=== PATIENT | female | born 1950 | race Caucasian/White ===

== ENCOUNTER 2018-12-04 11:56 | Emergency (ER) | payer OTHER, BC ==
[2018-12-04 12:08] VITALS: BP 123/63; PULSE 66; TEMP 98.1; BMI 30.1
--- NOTE | 2018-12-04 12:59 | PDOC ---
History of Present Illness - General Chief Complaint: Injury Stated Complaint: LF FOOT INJURY Time Seen by Provider: 12/04/18 12:21 History Source: Patient - History of Present Illness Occurred: reports: other Lower Extremity Pain Location: left: 4th toe, 5th toe Method of Injury: Yes: direct blow Past History - Past Medical History Allergies/Adverse Reactions: Allergies Allergy/AdvReac Type Severity Reaction Status Date / Time No Known Allergies Allergy Verified 12/04/18 12:04 Home Medications: Ambulatory Orders Amlodipine Besylate [Norvasc -] 5 mg PO DAILY 12/04/18 Carvedilol 6.25 mg PO BID 12/04/18 Hydralazine HCl 10 mg PO ASDIR 12/04/18 Isosorbide Dinitrate [Isordil] 20 mg PO DAILY 12/04/18 Olmesartan Medoxomil [Benicar (Nf)] 20 mg PO DAILY 12/04/18 Simvastatin 20 mg PO HS 12/04/18 Cardiac Disorders: Yes CVA: Yes (2000) COPD: Yes HTN: Yes Hypercholesterolemia: Yes - Surgical History Cardiac Surgery: Yes (PACEMAKER, DEFIB) - Psycho Social/Smoking Cessation Hx Smoking Status: Yes Smoking History: Unknown if ever smoked Number of Cigarettes Smoked Daily: 10 If you are a former smoker, when did you quit?: 03/15/2013 Hx Alcohol Use: No Drug/Substance Use Hx: No Substance Use Type: None Review of Systems - Review of Systems Musculoskeletal: Yes: Joint Pain, Joint Swelling *Physical Exam - Vital Signs Last Vital Signs Temp Pulse Resp BP Pulse Ox 98.1 F 66 16 123/63 12/04/18 12:06 12/04/18 12:06 12/04/18 12:06 12/04/18 12:06 - Physical Exam General Appearance: Yes: Appropriately Dressed. No: Apparent Distress HEENT: positive: Normal Voice Neck: positive: Supple Respiratory/Chest: negative: Respiratory Distress Extremity: positive: Other (contusion to dorsum of L 4th/5th toes, no sig swelling) Integumentary: positive: Dry, Warm Neurologic: positive: Fully Oriented, Alert, Normal Mood/Affect ED Treatment Course - RADIOLOGY Radiology Studies Ordered: Category Date Time Status FOOT-LEFT [RAD] Stat Radiology 12/04/18 12:34 Completed Medical Decision Making - Medical Decision Making 10/04/19 13:00 68-year-old female with multiple comorbidities here with persistent pain to L 4th/5th toes after bumping L foot into shopping cart 4 days ago. see exam Toe contusion XR neg for fx -Gen tape placed, to take tylenol prn -To f/u with PMD Discharge - Discharge Information Problems reviewed: Yes Clinical Impression/Diagnosis: Contusion Qualifiers: Encounter type: initial encounter Contusion area: toe Toe: lesser toe Damage to nail status: without damage Laterality: left Qualified Code(s): S90.122A - Contusion of left lesser toe(s) without damage to nail, initial encounter Condition: Good Disposition: HOME - Follow up/Referral Referrals: Francisco Carbajal MD [Primary Care Provider] - - Patient Discharge Instructions Patient Printed Discharge Instructions: Contusion Additional Instructions: You sustained a toe contusion. X-ray showed no fracture. Take extra strength Tylenol and keep gen tape in place for comfort Please follow-up with your doctor as needed - Post Discharge Activity
== END 2018-12-04 12:59 | disposition home or self-care (01) ==
LOC: JERFT 11:56
PROC: 2W3VXYZ Immobilization of Left Toe using Other Device (ICD-10-PCS; principal; 2018-12-04)
DX: S90.122A Contusion of left lesser toe(s) without damage to nail, initial encounter (principal); W22.8XXA Striking against or struck by other objects, initial encounter; Y93.89 Activity, other specified; Y92.512 Supermarket, store or market as the place of occurrence of the external cause; E78.00 Pure hypercholesterolemia, unspecified; I10 Essential (primary) hypertension; Z86.73 Personal history of transient ischemic attack (TIA), and cerebral infarction without residual deficits; Z87.891 Personal history of nicotine dependence; Z95.0 Presence of cardiac pacemaker
CPT/HCPCS: 29550; 73630-TC-LT; 99281-25

== ENCOUNTER 2019-01-06 09:56 | Emergency (ER) | payer OTHER, BC ==
[2019-01-06] MEDS ORDERED: ACETAMINOPHEN 325 MG TABLET (FP) PO ONE (10:43)
[2019-01-06] MEDS ORDERED: ACETAMINOPHEN 325 MG TABLET (FP) ONE (10:44)
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
[2019-01-06 11:24] VITALS: BP 143/79; PULSE 62; TEMP 97.2; BMI 39.6
== END 2019-01-06 10:49 | disposition home or self-care (01) ==
LOC: JERFT 09:56
DX: M54.6 Pain in thoracic spine (principal); M25.562 Pain in left knee; V43.52XA Car driver injured in collision with other type car in traffic accident, initial encounter; Y92.414 Local residential or business street as the place of occurrence of the external cause; Y93.89 Activity, other specified; Y99.8 Other external cause status; I25.10 Atherosclerotic heart disease of native coronary artery without angina pectoris; I10 Essential (primary) hypertension; Z95.810 Presence of automatic (implantable) cardiac defibrillator; J44.9 Chronic obstructive pulmonary disease, unspecified; E78.00 Pure hypercholesterolemia, unspecified; Z86.73 Personal history of transient ischemic attack (TIA), and cerebral infarction without residual deficits
CPT/HCPCS: 99281-25

== ENCOUNTER 2020-12-02 10:18 | Emergency (ER) | payer OTHER, BC ==
[2020-12-02 10:31] VITALS: PULSE 88; TEMP 97.9; BMI 45.7
[2020-12-02 13:58] VITALS: BP 120/78
== END 2020-12-02 13:59 | disposition home or self-care (01) ==
LOC: JER 10:18
DX: T82.118A Breakdown (mechanical) of other cardiac electronic device, initial encounter (principal)
CPT/HCPCS: 71045-TC-FY; 93005; 93010; 99284-25

== ENCOUNTER 2021-09-26 16:50 | Emergency (ER) | payer OTHER, BC ==
[2021-09-26 17:11] VITALS: BP 131/86; PULSE 71; RESP 18; TEMP 98.1; BMI 42.0
== END 2021-09-26 18:01 | disposition home or self-care (01) ==
LOC: JERFT 16:50
DX: R21 Rash and other nonspecific skin eruption (principal)
CPT/HCPCS: 99283-25

== ENCOUNTER 2023-02-20 09:19 | Inpatient (IN) | payer OTHER, BC ==
[2023-02-20] MEDS ORDERED: ALBUTEROL SO4 2.5/IPRATROPIUM 0.5 INH SOL 3 ML VIAL.NEB. NEB ONE ×5 (10:32→19:37)
[2023-02-20 11:25] LABS: INR 1.7 (0.83-1.09); PROTHROMBIN TIME (PATIENT) 19.6 SEC (9.7-13.0)
[2023-02-20 11:27] LABS: BASO % 0.4 % (0-2.0); EOS % 0.1 % (0-4.5); HEMATOCRIT 38.8 % (32.4-45.2); HEMOGLOBIN 12.2 GM/dL (10.7-15.3); LYMPH % 4.6 % (8-40); MCH 24.6 pg (25.7-33.7); MCHC 31.5 g/dl (32.0-36.0); MEAN PLT VOLUME 7.3 fl (7.5-11.1); MONO % 12.6 % (3.8-10.2); NEUT % 82.3 % (42.8-82.8); PLATELET COUNT 237 10^3/uL (134-434); RBC 4.98 M/mm3 (3.60-5.2); RDW 16.6 % (11.6-15.6); WHITE BLOOD COUNT 6.6 K/mm3 (4.0-10.0)
[2023-02-20 11:28] LABS: ACTIVATED PTT 33.3 SECONDS (25.2-36.5)
[2023-02-20 11:45] LABS: POTASSIUM 4.7 mmol/L (3.5-5.1)
[2023-02-20 11:47] LABS: ALBUMIN 3.4 g/dl (3.4-5.0); BLOOD UREA NITROGEN 30.6 mg/dL (7-18); MAGNESIUM 2.1 mg/dL (1.8-2.4)
[2023-02-20 11:50] LABS: CREATININE 1.1 mg/dL (0.55-1.3)
[2023-02-20 11:52] LABS: BILIRUBIN,TOTAL 0.3 mg/dL (0.2-1)
[2023-02-20 11:55] LABS: N-TERMINAL BNP 1108.6 pg/ml (5-125); TOT PROT 6.5 g/dl (6.4-8.2)
[2023-02-20] MEDS ORDERED: methylPREDNISolone NA SUCC 125 MG/2 ML VIAL IVPUSH ONE (13:24)
[2023-02-20] MEDS ORDERED: ALBUTEROL SO4 0.083% IH SOL 2.5 MG/3 ML VIAL.NEB. NEB ONE ×2 (13:25→14:13)
[2023-02-20] MEDS ORDERED: methylPREDNISolone NA SUCC 125 MG/2 ML VIAL ONE (14:13)
[2023-02-20] MEDS ORDERED: methylPREDNISolone NA SUCC 40 MG/1 ML VIAL ONE (17:25)
[2023-02-20] MEDS: methylPREDNISolone NA SUCC 40 MG/1 ML VIAL IVPUSH SCH (18:34)
[2023-02-20 18:46] LABS: EPI CELLS 17 /uL (0-25.1); HYALINE CASTS 1 /uL (0-3.1); PH,URINE 5.5 (5.0-8.0); URINE APPEARANCE CLEAR; URINE BACTERIA 62 /uL (0-1359); URINE BILIRUBIN NEGATIVE (NEGATIVE); URINE COLOR YELLOW; URINE GLUCOSE (UA) 3+ (NEGATIVE); URINE KETONE NEGATIVE (NEGATIVE); URINE LEUK ESTERASE NEGATIVE (NEGATIVE); URINE NITRITE NEGATIVE (NEGATIVE); URINE PROTEIN 2+ (NEGATIVE); URINE UROBILINOGEN 0.2 mg/dL (0.2-1.0); URINE WBC 23 /uL (0-25.8)
[2023-02-20] MEDS: ALBUTEROL SO4 2.5/IPRATROPIUM 0.5 INH SOL 3 ML VIAL.NEB. NEB SCH (19:43)
[2023-02-20] MEDS: RIVAROXABAN 20 MG TABLET PO SCH (19:43)
[2023-02-20] MEDS: ISOSORBIDE DINITRATE 20 MG TABLET PO SCH (19:49)
[2023-02-20 20:48] LABS: URINE RBC 23.3 /uL (0-23.9)
[2023-02-20] MEDS ORDERED: CARVEDILOL 6.25 MG TABLET (FP) ONE (21:01)
[2023-02-20] MEDS ORDERED: hydrALAZINE HCL 10 MG TABLET ONE (21:01)
[2023-02-20] MEDS: CARVEDILOL 6.25 MG TABLET (FP) PO SCH (21:08)
[2023-02-20] MEDS: hydrALAZINE HCL 10 MG TABLET PO SCH (21:08)
[2023-02-20] MEDS: ROSUVASTATIN CA 10 MG TABLET PO SCH (21:08)
[2023-02-20] MEDS: PRAMIPEXOLE DIHYDROCHLORIDE 0.5 MG TABLET PO SCH (21:09)
[2023-02-20] MEDS: INSULIN SLIDING SCALE (NOVOLOG) 1 VIAL SQ SCH (21:13)
[2023-02-20] MEDS ORDERED: INSULIN (NOVOLOG) ASPART 100 UNITS/ML 10ML VIAL SQ ONE (22:32)
[2023-02-21] MEDS ORDERED: SODIUM CHLORIDE 250 ML IV STA (00:32)
[2023-02-21] MEDS ORDERED: methylPREDNISolone NA SUCC 40 MG/1 ML VIAL ONE (00:48)
[2023-02-21] MEDS: methylPREDNISolone NA SUCC 40 MG/1 ML VIAL IVPUSH SCH ×3 (01:00→17:39)
[2023-02-21 02:03] LABS: BILIRUBIN,TOTAL 0.2 mg/dL (0.2-1); BLOOD UREA NITROGEN 35.2 mg/dL (7-18); CALCIUM 8.5 mg/dL (8.5-10.1); CREATININE 1.4 mg/dL (0.55-1.3); MAGNESIUM 2.3 mg/dL (1.8-2.4); PHOSPHOROUS 4.1 mg/dL (2.5-4.9); POTASSIUM 4.8 mmol/L (3.5-5.1)
[2023-02-21] MEDS ORDERED: INSULIN (NOVOLOG) ASPART 100 UNITS/ML 10ML VIAL ONE ×4 (07:40→21:22)
[2023-02-21] MEDS: INSULIN SLIDING SCALE (NOVOLOG) 1 VIAL SQ SCH ×5 (07:41→22:01)
[2023-02-21 08:15] LABS: BASO % 0.1 % (0-2.0); HEMOGLOBIN 11.2 GM/dL (10.7-15.3); LYMPH % 4.7 % (8-40); MCH 24.8 pg (25.7-33.7); MCHC 31.9 g/dl (32.0-36.0); MEAN CELL VOLUME 77.8 fl (80-96); MEAN PLT VOLUME 7.5 fl (7.5-11.1); MONO % 4.7 % (3.8-10.2); NEUT % 90.5 % (42.8-82.8); PLATELET COUNT 218 10^3/uL (134-434); RDW 16.9 % (11.6-15.6); WHITE BLOOD COUNT 4.3 K/mm3 (4.0-10.0)
[2023-02-21] MEDS: ALBUTEROL SO4 2.5/IPRATROPIUM 0.5 INH SOL 3 ML VIAL.NEB. NEB SCH ×4 (08:28→20:18)
[2023-02-21] MEDS ORDERED: ISOSORBIDE DINITRATE 20 MG TABLET PO SCH (10:00)
[2023-02-21] MEDS ORDERED: CEFTRIAXONE 1,000 MG in DEXTROSE 5%-WATER - 50 ML IVPB SCH (10:00)
[2023-02-21] MEDS: LOSARTAN POTASSIUM 50 MG TABLET PO SCH (10:36)
[2023-02-21] MEDS: hydrALAZINE HCL 10 MG TABLET PO SCH ×2 (10:36→22:02)
[2023-02-21] MEDS: CARVEDILOL 6.25 MG TABLET (FP) PO SCH ×2 (10:36→22:02)
[2023-02-21] MEDS: PRAMIPEXOLE DIHYDROCHLORIDE 0.5 MG TABLET PO SCH ×2 (10:36→22:02)
[2023-02-21] MEDS: NYSTATIN POWDER 100,000 UNITS/GM - 15 GM TOPICAL POWDER TP SCH ×2 (10:37→22:03)
[2023-02-21] MEDS: ISOSORBIDE DINITRATE 20 MG TABLET PO SCH ×2 (11:33→18:24)
[2023-02-21] MEDS: OSELTAMIVIR PHOSPHATE 75 MG CAPSULE PO SCH (13:13)
[2023-02-21] MEDS: RIVAROXABAN 20 MG TABLET PO SCH (18:24)
[2023-02-21] MEDS ORDERED: INSULIN (LEVEMIR) 100 UNITS/ML UNITS SQ SCH (22:00)
[2023-02-21] MEDS: guaiFENesin 600 MG TABLET.ER (FP) PO SCH (22:02)
[2023-02-21] MEDS: INSULIN (LEVEMIR) 100 UNITS/ML UNITS SQ SCH (22:02)
[2023-02-21] MEDS: ROSUVASTATIN CA 10 MG TABLET PO SCH (22:02)
[2023-02-22] MEDS: methylPREDNISolone NA SUCC 40 MG/1 ML VIAL IVPUSH SCH ×3 (02:03→17:58)
[2023-02-22] MEDS ORDERED: INSULIN (NOVOLOG) ASPART 100 UNITS/ML 10ML VIAL ONE ×2 (06:07→21:09)
[2023-02-22] MEDS: INSULIN SLIDING SCALE (NOVOLOG) 1 VIAL SQ SCH ×4 (06:42→21:39)
[2023-02-22] MEDS: INSULIN (LEVEMIR) 100 UNITS/ML UNITS SQ SCH ×2 (06:45→21:38)
[2023-02-22] MEDS: ALBUTEROL SO4 2.5/IPRATROPIUM 0.5 INH SOL 3 ML VIAL.NEB. NEB SCH ×4 (07:30→20:19)
[2023-02-22 08:34] LABS: HEMATOCRIT 36.2 % (32.4-45.2); HEMOGLOBIN 11.4 GM/dL (10.7-15.3); MCH 24.6 pg (25.7-33.7); MCHC 31.6 g/dl (32.0-36.0); MEAN CELL VOLUME 78.1 fl (80-96); MEAN PLT VOLUME 7.6 fl (7.5-11.1); PLATELET COUNT 254 10^3/uL (134-434); RBC 4.63 M/mm3 (3.60-5.2); RDW 16.3 % (11.6-15.6); WHITE BLOOD COUNT 9.2 K/mm3 (4.0-10.0)
[2023-02-22 09:05] LABS: POTASSIUM 5.2 mmol/L (3.5-5.1)
[2023-02-22 09:27] LABS: BLOOD UREA NITROGEN 47.5 mg/dL (7-18); MAGNESIUM 2.6 mg/dL (1.8-2.4)
[2023-02-22 09:30] LABS: BILIRUBIN,TOTAL 0.2 mg/dL (0.2-1); TOT PROT 5.9 g/dl (6.4-8.2)
[2023-02-22 10:21] LABS: ANISOCYTOSIS 3+; MACROCYTOSIS 0
[2023-02-22] MEDS: hydrALAZINE HCL 10 MG TABLET PO SCH ×2 (10:48→21:41)
[2023-02-22] MEDS: guaiFENesin 600 MG TABLET.ER (FP) PO SCH ×2 (10:48→21:40)
[2023-02-22] MEDS: CARVEDILOL 6.25 MG TABLET (FP) PO SCH ×2 (10:48→21:41)
[2023-02-22] MEDS: OSELTAMIVIR PHOSPHATE 75 MG CAPSULE PO SCH (10:48)
[2023-02-22] MEDS: ISOSORBIDE DINITRATE 20 MG TABLET PO SCH ×2 (10:48→17:58)
[2023-02-22] MEDS: PRAMIPEXOLE DIHYDROCHLORIDE 0.5 MG TABLET PO SCH ×2 (10:48→21:40)
[2023-02-22] MEDS: LOSARTAN POTASSIUM 50 MG TABLET PO SCH (10:48)
[2023-02-22] MEDS: NYSTATIN POWDER 100,000 UNITS/GM - 15 GM TOPICAL POWDER TP SCH ×2 (10:50→21:42)
[2023-02-22] MEDS ORDERED: SODIUM ZIRCONIUM CYCLOSILICATE (LOKELMA) 5 GM PACKET PO ONE (12:00)
[2023-02-22 13:29] LABS: GLUCOSE,RANDOM 454 mg/dL (74-106)
[2023-02-22 14:13] VITALS: BMI 41.8
[2023-02-22] MEDS: RIVAROXABAN 20 MG TABLET PO SCH (17:59)
[2023-02-22] MEDS: ROSUVASTATIN CA 10 MG TABLET PO SCH (21:41)
[2023-02-22] MEDS ORDERED: metFORMIN HCL 500 MG TABLET (FP) PO SCH (22:00)
[2023-02-22] MEDS ORDERED: METFORMIN HCL 500 MG PO SCH (22:00)
[2023-02-23] MEDS: methylPREDNISolone NA SUCC 40 MG/1 ML VIAL IVPUSH SCH ×3 (01:11→17:35)
[2023-02-23] MEDS: INSULIN (LEVEMIR) 100 UNITS/ML UNITS SQ SCH ×2 (07:01→22:55)
[2023-02-23] MEDS: INSULIN SLIDING SCALE (NOVOLOG) 1 VIAL SQ SCH ×4 (07:02→22:59)
[2023-02-23 09:01] LABS: HEMATOCRIT 37.8 % (32.4-45.2); HEMOGLOBIN 11.7 GM/dL (10.7-15.3); MCH 24.3 pg (25.7-33.7); MEAN CELL VOLUME 78.3 fl (80-96); MEAN PLT VOLUME 7.8 fl (7.5-11.1); PLATELET COUNT 303 10^3/uL (134-434); RBC 4.82 M/mm3 (3.60-5.2); RDW 16.9 % (11.6-15.6)
[2023-02-23 09:27] LABS: POTASSIUM 5.3 mmol/L (3.5-5.1)
[2023-02-23 09:38] LABS: BLOOD UREA NITROGEN 43.2 mg/dL (7-18)
[2023-02-23 09:40] LABS: ALBUMIN 2.9 g/dl (3.4-5.0); BILIRUBIN,TOTAL 0.3 mg/dL (0.2-1); CREATININE 0.9 mg/dL (0.55-1.3); MAGNESIUM 2.5 mg/dL (1.8-2.4); TOT PROT 5.8 g/dl (6.4-8.2)
[2023-02-23] MEDS: ALBUTEROL SO4 2.5/IPRATROPIUM 0.5 INH SOL 3 ML VIAL.NEB. NEB SCH ×4 (09:40→20:05)
[2023-02-23 09:52] LABS: ANISOCYTOSIS 0; HELMET CELLS 0; HOWELL-JOLLY BODIES 0; MACROCYTOSIS 0; OVALOCYTE 0; ROULEAU 0; SICKELED CELLS 0; TARGET CELLS 0; TEAR DROP CELLS 0; TOXIC GRANULATION 0
[2023-02-23] MEDS: LOSARTAN POTASSIUM 50 MG TABLET PO SCH (10:20)
[2023-02-23] MEDS: ISOSORBIDE DINITRATE 20 MG TABLET PO SCH ×2 (10:20→17:36)
[2023-02-23] MEDS: PRAMIPEXOLE DIHYDROCHLORIDE 0.5 MG TABLET PO SCH ×2 (10:20→22:54)
[2023-02-23] MEDS: CARVEDILOL 6.25 MG TABLET (FP) PO SCH ×2 (10:20→22:54)
[2023-02-23] MEDS: hydrALAZINE HCL 10 MG TABLET PO SCH ×2 (10:20→22:53)
[2023-02-23] MEDS: guaiFENesin 600 MG TABLET.ER (FP) PO SCH ×2 (10:20→22:54)
[2023-02-23] MEDS: OSELTAMIVIR PHOSPHATE 75 MG CAPSULE PO SCH (10:20)
[2023-02-23] MEDS: NYSTATIN POWDER 100,000 UNITS/GM - 15 GM TOPICAL POWDER TP SCH ×2 (10:22→23:01)
[2023-02-23] MEDS ORDERED: INSULIN (NOVOLOG) ASPART 100 UNITS/ML 10ML VIAL ONE (12:09)
[2023-02-23] MEDS: SODIUM ZIRCONIUM CYCLOSILICATE (LOKELMA) 10 GM PACKET PO SCH (12:22)
[2023-02-23 13:07] LABS: GLUCOSE,RANDOM 492 mg/dL (74-106)
[2023-02-23] MEDS ORDERED: metFORMIN HCL 500 MG TABLET (FP) PO ONE (13:45)
[2023-02-23] MEDS: metFORMIN HCL 500 MG TABLET (FP) PO SCH (17:34)
[2023-02-23] MEDS: RIVAROXABAN 20 MG TABLET PO SCH (17:34)
[2023-02-23] MEDS: ROSUVASTATIN CA 10 MG TABLET PO SCH (22:54)
[2023-02-24] MEDS: methylPREDNISolone NA SUCC 40 MG/1 ML VIAL IVPUSH SCH ×3 (03:05→17:18)
[2023-02-24] MEDS ORDERED: amLODIPine BESYLATE 10 MG TABLET (FP) PO ONE (05:54)
[2023-02-24] MEDS ORDERED: amLODIPine BESYLATE 5 MG TABLET (FP) PO ONE (05:55)
[2023-02-24] MEDS: metFORMIN HCL 500 MG TABLET (FP) PO SCH ×2 (06:41→17:17)
[2023-02-24] MEDS: INSULIN SLIDING SCALE (NOVOLOG) 1 VIAL SQ SCH ×4 (06:42→22:34)
[2023-02-24] MEDS: INSULIN (LEVEMIR) 100 UNITS/ML UNITS SQ SCH ×2 (06:43→22:31)
[2023-02-24] MEDS ORDERED: INSULIN (NOVOLOG) ASPART 100 UNITS/ML 10ML VIAL ONE ×4 (07:15→22:33)
[2023-02-24] MEDS: ALBUTEROL SO4 2.5/IPRATROPIUM 0.5 INH SOL 3 ML VIAL.NEB. NEB SCH ×4 (07:40→20:35)
[2023-02-24 09:14] LABS: HEMATOCRIT 37.2 % (32.4-45.2); HEMOGLOBIN 11.6 GM/dL (10.7-15.3); MCH 24.1 pg (25.7-33.7); MCHC 31.2 g/dl (32.0-36.0); MEAN CELL VOLUME 77.2 fl (80-96); MEAN PLT VOLUME 7.5 fl (7.5-11.1); PLATELET COUNT 278 10^3/uL (134-434); RBC 4.82 M/mm3 (3.60-5.2); RDW 16.6 % (11.6-15.6); WHITE BLOOD COUNT 11.8 K/mm3 (4.0-10.0)
[2023-02-24 09:38] LABS: ANISOCYTOSIS 0; MACROCYTOSIS 0
[2023-02-24] MEDS: LOSARTAN POTASSIUM 50 MG TABLET PO SCH (09:38)
[2023-02-24] MEDS: OSELTAMIVIR PHOSPHATE 75 MG CAPSULE PO SCH (09:38)
[2023-02-24] MEDS: CARVEDILOL 6.25 MG TABLET (FP) PO SCH ×2 (09:38→22:30)
[2023-02-24] MEDS: PRAMIPEXOLE DIHYDROCHLORIDE 0.5 MG TABLET PO SCH ×2 (09:38→22:29)
[2023-02-24] MEDS: hydrALAZINE HCL 10 MG TABLET PO SCH ×2 (09:38→22:28)
[2023-02-24] MEDS: guaiFENesin 600 MG TABLET.ER (FP) PO SCH ×2 (09:38→22:29)
[2023-02-24] MEDS: NYSTATIN POWDER 100,000 UNITS/GM - 15 GM TOPICAL POWDER TP SCH ×2 (09:45→22:35)
[2023-02-24] MEDS: ISOSORBIDE DINITRATE 20 MG TABLET PO SCH ×2 (09:45→17:21)
[2023-02-24 09:48] LABS: CALCIUM 8.8 mg/dL (8.5-10.1)
[2023-02-24 09:49] LABS: ALBUMIN 2.8 g/dl (3.4-5.0); BLOOD UREA NITROGEN 37.6 mg/dL (7-18); MAGNESIUM 2.2 mg/dL (1.8-2.4)
[2023-02-24 09:52] LABS: CREATININE 0.8 mg/dL (0.55-1.3)
[2023-02-24 09:53] LABS: TOT PROT 5.7 g/dl (6.4-8.2)
[2023-02-24 09:54] LABS: BILIRUBIN,TOTAL 0.3 mg/dL (0.2-1)
[2023-02-24] MEDS: SODIUM ZIRCONIUM CYCLOSILICATE (LOKELMA) 10 GM PACKET PO SCH (12:56)
[2023-02-24] MEDS: RIVAROXABAN 20 MG TABLET PO SCH (17:17)
[2023-02-24] MEDS: ROSUVASTATIN CA 10 MG TABLET PO SCH (22:29)
[2023-02-25] MEDS: methylPREDNISolone NA SUCC 40 MG/1 ML VIAL IVPUSH SCH ×3 (02:25→17:42)
[2023-02-25] MEDS ORDERED: amLODIPine BESYLATE 2.5 MG TABLET (FP) PO ONE (03:15)
[2023-02-25] MEDS ORDERED: INSULIN (NOVOLOG) ASPART 100 UNITS/ML 10ML VIAL ONE (06:44)
[2023-02-25] MEDS: metFORMIN HCL 500 MG TABLET (FP) PO SCH ×2 (07:15→17:42)
[2023-02-25] MEDS: INSULIN (LEVEMIR) 100 UNITS/ML UNITS SQ SCH ×2 (07:16→22:18)
[2023-02-25] MEDS: INSULIN SLIDING SCALE (NOVOLOG) 1 VIAL SQ SCH ×4 (07:20→22:19)
[2023-02-25] MEDS: ALBUTEROL SO4 2.5/IPRATROPIUM 0.5 INH SOL 3 ML VIAL.NEB. NEB SCH ×4 (08:19→20:21)
[2023-02-25 08:58] LABS: HEMATOCRIT 35.2 % (32.4-45.2); HEMOGLOBIN 11.2 GM/dL (10.7-15.3); MCH 24.8 pg (25.7-33.7); MCHC 31.7 g/dl (32.0-36.0); MEAN CELL VOLUME 78.3 fl (80-96); MEAN PLT VOLUME 7.7 fl (7.5-11.1); PLATELET COUNT 259 10^3/uL (134-434); RDW 16.2 % (11.6-15.6); WHITE BLOOD COUNT 9.8 K/mm3 (4.0-10.0)
[2023-02-25 09:02] LABS: POTASSIUM 4.7 mmol/L (3.5-5.1)
[2023-02-25 09:05] LABS: ALBUMIN 2.7 g/dl (3.4-5.0); BLOOD UREA NITROGEN 36.8 mg/dL (7-18); CALCIUM 8.7 mg/dL (8.5-10.1); MAGNESIUM 2.1 mg/dL (1.8-2.4)
[2023-02-25 09:08] LABS: CREATININE 0.8 mg/dL (0.55-1.3)
[2023-02-25 09:10] LABS: BILIRUBIN,TOTAL 0.3 mg/dL (0.2-1); TOT PROT 5.5 g/dl (6.4-8.2)
[2023-02-25] MEDS: hydrALAZINE HCL 10 MG TABLET PO SCH ×2 (09:14→22:21)
[2023-02-25] MEDS: LOSARTAN POTASSIUM 50 MG TABLET PO SCH (09:15)
[2023-02-25] MEDS: PRAMIPEXOLE DIHYDROCHLORIDE 0.5 MG TABLET PO SCH ×2 (09:15→22:21)
[2023-02-25] MEDS: CARVEDILOL 6.25 MG TABLET (FP) PO SCH ×2 (09:15→22:21)
[2023-02-25] MEDS: guaiFENesin 600 MG TABLET.ER (FP) PO SCH ×2 (09:15→22:20)
[2023-02-25] MEDS: ISOSORBIDE DINITRATE 20 MG TABLET PO SCH ×2 (09:43→17:45)
[2023-02-25] MEDS: NYSTATIN POWDER 100,000 UNITS/GM - 15 GM TOPICAL POWDER TP SCH ×2 (09:43→22:26)
[2023-02-25] MEDS: OSELTAMIVIR PHOSPHATE 75 MG CAPSULE PO SCH ×2 (09:54→22:21)
[2023-02-25 10:16] LABS: ANISOCYTOSIS 0; HELMET CELLS 0; HOWELL-JOLLY BODIES 0; MACROCYTOSIS 0; OVALOCYTE 0; ROULEAU 0; SICKELED CELLS 0; TARGET CELLS 0; TEAR DROP CELLS 0; TOXIC GRANULATION 0
[2023-02-25] MEDS: SODIUM ZIRCONIUM CYCLOSILICATE (LOKELMA) 10 GM PACKET PO SCH (12:05)
[2023-02-25] MEDS: RIVAROXABAN 20 MG TABLET PO SCH (17:41)
[2023-02-25] MEDS: ROSUVASTATIN CA 10 MG TABLET PO SCH (22:21)
[2023-02-26] MEDS: methylPREDNISolone NA SUCC 40 MG/1 ML VIAL IVPUSH SCH ×3 (02:35→17:39)
[2023-02-26] MEDS ORDERED: INSULIN (NOVOLOG) ASPART 100 UNITS/ML 10ML VIAL ONE (06:40)
[2023-02-26] MEDS: INSULIN SLIDING SCALE (NOVOLOG) 1 VIAL SQ SCH ×4 (06:47→22:12)
[2023-02-26] MEDS: INSULIN (LEVEMIR) 100 UNITS/ML UNITS SQ SCH ×2 (06:47→22:12)
[2023-02-26] MEDS: metFORMIN HCL 500 MG TABLET (FP) PO SCH ×2 (06:47→17:39)
[2023-02-26] MEDS: ALBUTEROL SO4 2.5/IPRATROPIUM 0.5 INH SOL 3 ML VIAL.NEB. NEB SCH ×4 (07:40→20:42)
[2023-02-26 09:47] LABS: HEMATOCRIT 35.1 % (32.4-45.2); HEMOGLOBIN 11.1 GM/dL (10.7-15.3); MCH 24.6 pg (25.7-33.7); MCHC 31.7 g/dl (32.0-36.0); MEAN CELL VOLUME 77.7 fl (80-96); MEAN PLT VOLUME 7.8 fl (7.5-11.1); PLATELET COUNT 253 10^3/uL (134-434); RBC 4.52 M/mm3 (3.60-5.2); RDW 16.2 % (11.6-15.6); WHITE BLOOD COUNT 8.5 K/mm3 (4.0-10.0)
[2023-02-26 10:36] LABS: POTASSIUM 4.6 mmol/L (3.5-5.1)
[2023-02-26 10:48] LABS: CREATININE 0.7 mg/dL (0.55-1.3)
[2023-02-26 10:49] LABS: BILIRUBIN,TOTAL 0.3 mg/dL (0.2-1); TOT PROT 5.4 g/dl (6.4-8.2)
[2023-02-26 10:51] LABS: ALBUMIN 2.6 g/dl (3.4-5.0); BLOOD UREA NITROGEN 34.7 mg/dL (7-18)
[2023-02-26 10:54] LABS: CALCIUM 8.4 mg/dL (8.5-10.1); MAGNESIUM 2.2 mg/dL (1.8-2.4)
[2023-02-26 11:09] LABS: ANISOCYTOSIS 3+; MACROCYTOSIS 0
[2023-02-26] MEDS: PRAMIPEXOLE DIHYDROCHLORIDE 0.5 MG TABLET PO SCH ×2 (11:09→22:14)
[2023-02-26] MEDS: CARVEDILOL 6.25 MG TABLET (FP) PO SCH ×2 (11:09→22:14)
[2023-02-26] MEDS: LOSARTAN POTASSIUM 50 MG TABLET PO SCH (11:09)
[2023-02-26] MEDS: OSELTAMIVIR PHOSPHATE 75 MG CAPSULE PO SCH ×2 (11:09→22:14)
[2023-02-26] MEDS: guaiFENesin 600 MG TABLET.ER (FP) PO SCH ×2 (11:09→22:14)
[2023-02-26] MEDS: hydrALAZINE HCL 10 MG TABLET PO SCH ×2 (11:09→22:14)
[2023-02-26] MEDS: ISOSORBIDE DINITRATE 20 MG TABLET PO SCH ×2 (11:09→18:01)
[2023-02-26] MEDS: NYSTATIN POWDER 100,000 UNITS/GM - 15 GM TOPICAL POWDER TP SCH ×2 (11:14→22:14)
[2023-02-26] MEDS: SODIUM ZIRCONIUM CYCLOSILICATE (LOKELMA) 10 GM PACKET PO SCH (12:25)
[2023-02-26] MEDS: RIVAROXABAN 20 MG TABLET PO SCH (17:38)
[2023-02-26] MEDS: ROSUVASTATIN CA 10 MG TABLET PO SCH (22:14)
[2023-02-27] MEDS: methylPREDNISolone NA SUCC 40 MG/1 ML VIAL IVPUSH SCH ×3 (03:01→17:41)
[2023-02-27] MEDS: INSULIN (LEVEMIR) 100 UNITS/ML UNITS SQ SCH ×2 (06:25→22:59)
[2023-02-27] MEDS: metFORMIN HCL 500 MG TABLET (FP) PO SCH ×2 (06:25→17:41)
[2023-02-27] MEDS: INSULIN SLIDING SCALE (NOVOLOG) 1 VIAL SQ SCH ×4 (06:26→23:05)
[2023-02-27] MEDS: ALBUTEROL SO4 2.5/IPRATROPIUM 0.5 INH SOL 3 ML VIAL.NEB. NEB SCH ×4 (07:46→20:25)
[2023-02-27 09:44] LABS: HEMOGLOBIN 11.4 GM/dL (10.7-15.3); MCH 24.6 pg (25.7-33.7); MCHC 31.7 g/dl (32.0-36.0); MEAN CELL VOLUME 77.8 fl (80-96); MEAN PLT VOLUME 7.8 fl (7.5-11.1); PLATELET COUNT 251 10^3/uL (134-434); RBC 4.62 M/mm3 (3.60-5.2); RDW 16.1 % (11.6-15.6); WHITE BLOOD COUNT 9.9 K/mm3 (4.0-10.0)
[2023-02-27 09:58] LABS: POTASSIUM 4.5 mmol/L (3.5-5.1)
[2023-02-27 10:00] LABS: CALCIUM 8.7 mg/dL (8.5-10.1)
[2023-02-27 10:02] LABS: ALBUMIN 2.5 g/dl (3.4-5.0); BLOOD UREA NITROGEN 30.8 mg/dL (7-18); MAGNESIUM 2.3 mg/dL (1.8-2.4)
[2023-02-27 10:04] LABS: CREATININE 0.7 mg/dL (0.55-1.3)
[2023-02-27 10:05] LABS: TOT PROT 5.1 g/dl (6.4-8.2)
[2023-02-27 10:07] LABS: BILIRUBIN,TOTAL 0.2 mg/dL (0.2-1)
[2023-02-27] MEDS: guaiFENesin 600 MG TABLET.ER (FP) PO SCH ×2 (10:07→22:59)
[2023-02-27] MEDS: LOSARTAN POTASSIUM 50 MG TABLET PO SCH (10:07)
[2023-02-27] MEDS: OSELTAMIVIR PHOSPHATE 75 MG CAPSULE PO SCH ×2 (10:07→22:59)
[2023-02-27] MEDS: hydrALAZINE HCL 10 MG TABLET PO SCH ×2 (10:07→22:59)
[2023-02-27] MEDS: CARVEDILOL 6.25 MG TABLET (FP) PO SCH ×2 (10:07→22:59)
[2023-02-27] MEDS: ISOSORBIDE DINITRATE 20 MG TABLET PO SCH ×2 (10:14→17:43)
[2023-02-27] MEDS: PRAMIPEXOLE DIHYDROCHLORIDE 0.5 MG TABLET PO SCH ×2 (10:15→22:59)
[2023-02-27] MEDS: NYSTATIN POWDER 100,000 UNITS/GM - 15 GM TOPICAL POWDER TP SCH ×2 (10:20→23:01)
[2023-02-27 10:49] LABS: ANISOCYTOSIS 0; MACROCYTOSIS 0
[2023-02-27] MEDS: SODIUM ZIRCONIUM CYCLOSILICATE (LOKELMA) 5 GM PACKET PO SCH (12:31)
[2023-02-27] MEDS: SODIUM ZIRCONIUM CYCLOSILICATE (LOKELMA) 10 GM PACKET PO SCH (12:43)
[2023-02-27] MEDS: RIVAROXABAN 20 MG TABLET PO SCH (17:41)
[2023-02-27] MEDS: ROSUVASTATIN CA 10 MG TABLET PO SCH (22:59)
[2023-02-27] MEDS: guaiFENesin/CODEINE 10 ML UNIT-DOSE CUPS PO SCH (23:01)
[2023-02-28] MEDS: methylPREDNISolone NA SUCC 40 MG/1 ML VIAL IVPUSH SCH ×3 (01:10→21:30)
[2023-02-28] MEDS: ALBUTEROL SO4 HFA INHALER IH PRN (05:00)
[2023-02-28] MEDS ORDERED: INSULIN (NOVOLOG) ASPART 100 UNITS/ML 10ML VIAL ONE ×2 (06:06→21:10)
[2023-02-28] MEDS: metFORMIN HCL 500 MG TABLET (FP) PO SCH ×2 (06:08→16:06)
[2023-02-28] MEDS: INSULIN (LEVEMIR) 100 UNITS/ML UNITS SQ SCH ×2 (06:09→21:32)
[2023-02-28] MEDS: INSULIN SLIDING SCALE (NOVOLOG) 1 VIAL SQ SCH ×4 (06:10→21:34)
[2023-02-28] MEDS: ALBUTEROL SO4 2.5/IPRATROPIUM 0.5 INH SOL 3 ML VIAL.NEB. NEB SCH ×4 (07:33→20:35)
[2023-02-28 09:45] LABS: HEMATOCRIT 36.2 % (32.4-45.2); HEMOGLOBIN 11.6 GM/dL (10.7-15.3); MCH 24.7 pg (25.7-33.7); MCHC 32.1 g/dl (32.0-36.0); MEAN CELL VOLUME 76.8 fl (80-96); MEAN PLT VOLUME 7.8 fl (7.5-11.1); PLATELET COUNT 267 10^3/uL (134-434); RBC 4.72 M/mm3 (3.60-5.2); RDW 16.5 % (11.6-15.6); WHITE BLOOD COUNT 10.3 K/mm3 (4.0-10.0)
[2023-02-28 09:55] LABS: POTASSIUM 4.4 mmol/L (3.5-5.1)
[2023-02-28 09:56] LABS: CALCIUM 8.7 mg/dL (8.5-10.1)
[2023-02-28 09:57] LABS: ALBUMIN 2.5 g/dl (3.4-5.0); BLOOD UREA NITROGEN 31.1 mg/dL (7-18); MAGNESIUM 2.2 mg/dL (1.8-2.4)
[2023-02-28 10:01] LABS: BILIRUBIN,TOTAL 0.3 mg/dL (0.2-1); CREATININE 0.7 mg/dL (0.55-1.3)
[2023-02-28 10:03] LABS: TOT PROT 5.4 g/dl (6.4-8.2)
[2023-02-28 10:19] LABS: ANISOCYTOSIS 0; MACROCYTOSIS 0
[2023-02-28] MEDS: CARVEDILOL 6.25 MG TABLET (FP) PO SCH ×2 (10:37→21:31)
[2023-02-28] MEDS: PRAMIPEXOLE DIHYDROCHLORIDE 0.5 MG TABLET PO SCH ×2 (10:37→21:31)
[2023-02-28] MEDS: hydrALAZINE HCL 10 MG TABLET PO SCH ×2 (10:37→21:31)
[2023-02-28] MEDS: ISOSORBIDE DINITRATE 20 MG TABLET PO SCH ×2 (10:38→21:31)
[2023-02-28] MEDS: LOSARTAN POTASSIUM 50 MG TABLET PO SCH (10:38)
[2023-02-28] MEDS: guaiFENesin 600 MG TABLET.ER (FP) PO SCH ×2 (10:38→21:31)
[2023-02-28] MEDS: NYSTATIN POWDER 100,000 UNITS/GM - 15 GM TOPICAL POWDER TP SCH ×2 (10:44→21:41)
[2023-02-28] MEDS: SODIUM ZIRCONIUM CYCLOSILICATE (LOKELMA) 5 GM PACKET PO SCH (12:22)
[2023-02-28] MEDS: RIVAROXABAN 20 MG TABLET PO SCH (18:08)
[2023-02-28] MEDS: guaiFENesin/CODEINE 10 ML UNIT-DOSE CUPS PO SCH (21:31)
[2023-02-28] MEDS: ROSUVASTATIN CA 10 MG TABLET PO SCH (21:31)
[2023-03-01] MEDS: metFORMIN HCL 500 MG TABLET (FP) PO SCH ×2 (06:20→17:25)
[2023-03-01] MEDS: hydrALAZINE HCL 10 MG TABLET PO SCH ×3 (06:21→21:50)
[2023-03-01] MEDS: INSULIN (LEVEMIR) 100 UNITS/ML UNITS SQ SCH ×2 (06:21→22:00)
[2023-03-01] MEDS: INSULIN SLIDING SCALE (NOVOLOG) 1 VIAL SQ SCH ×4 (06:23→22:02)
[2023-03-01] MEDS: ALBUTEROL SO4 HFA INHALER IH PRN (06:26)
[2023-03-01] MEDS ORDERED: INSULIN (NOVOLOG) ASPART 100 UNITS/ML 10ML VIAL ONE ×3 (06:49→19:00)
[2023-03-01] MEDS: ALBUTEROL SO4 2.5/IPRATROPIUM 0.5 INH SOL 3 ML VIAL.NEB. NEB SCH ×4 (07:15→20:33)
[2023-03-01 09:21] LABS: HEMATOCRIT 37.1 % (32.4-45.2); HEMOGLOBIN 11.5 GM/dL (10.7-15.3); MCH 24.4 pg (25.7-33.7); MCHC 31.1 g/dl (32.0-36.0); MEAN CELL VOLUME 78.4 fl (80-96); MEAN PLT VOLUME 7.7 fl (7.5-11.1); PLATELET COUNT 262 10^3/uL (134-434); RBC 4.73 M/mm3 (3.60-5.2); RDW 16.2 % (11.6-15.6); WHITE BLOOD COUNT 13.1 K/mm3 (4.0-10.0)
[2023-03-01 09:39] LABS: POTASSIUM 4.8 mmol/L (3.5-5.1)
[2023-03-01 09:48] LABS: CALCIUM 9.3 mg/dL (8.5-10.1)
[2023-03-01 09:49] LABS: BLOOD UREA NITROGEN 33.9 mg/dL (7-18); MAGNESIUM 2.1 mg/dL (1.8-2.4)
[2023-03-01 09:51] LABS: ALBUMIN 2.6 g/dl (3.4-5.0)
[2023-03-01 09:52] LABS: CREATININE 0.8 mg/dL (0.55-1.3)
[2023-03-01 09:53] LABS: BILIRUBIN,TOTAL 0.3 mg/dL (0.2-1); TOT PROT 5.6 g/dl (6.4-8.2)
[2023-03-01] MEDS ORDERED: methylPREDNISolone NA SUCC 40 MG/1 ML VIAL IVPUSH SCH (10:00)
[2023-03-01] MEDS: CARVEDILOL 6.25 MG TABLET (FP) PO SCH ×2 (11:36→21:50)
[2023-03-01] MEDS: PRAMIPEXOLE DIHYDROCHLORIDE 0.5 MG TABLET PO SCH ×2 (11:36→21:50)
[2023-03-01] MEDS: guaiFENesin 600 MG TABLET.ER (FP) PO SCH ×2 (11:36→21:50)
[2023-03-01] MEDS: LOSARTAN POTASSIUM 50 MG TABLET PO SCH (11:36)
[2023-03-01] MEDS: NYSTATIN POWDER 100,000 UNITS/GM - 15 GM TOPICAL POWDER TP SCH ×2 (11:37→22:06)
[2023-03-01] MEDS: ISOSORBIDE DINITRATE 20 MG TABLET PO SCH ×2 (12:25→17:25)
[2023-03-01] MEDS: RIVAROXABAN 20 MG TABLET PO SCH (17:25)
[2023-03-01] MEDS: ROSUVASTATIN CA 10 MG TABLET PO SCH (21:50)
[2023-03-01] MEDS: guaiFENesin/CODEINE 10 ML UNIT-DOSE CUPS PO SCH (21:50)
[2023-03-02] MEDS: metFORMIN HCL 500 MG TABLET (FP) PO SCH ×2 (07:18→16:49)
[2023-03-02] MEDS: INSULIN (LEVEMIR) 100 UNITS/ML UNITS SQ SCH ×2 (07:38→21:19)
[2023-03-02] MEDS: INSULIN SLIDING SCALE (NOVOLOG) 1 VIAL SQ SCH ×4 (07:39→21:21)
[2023-03-02] MEDS: ALBUTEROL SO4 2.5/IPRATROPIUM 0.5 INH SOL 3 ML VIAL.NEB. NEB SCH (08:02)
[2023-03-02] MEDS: hydrALAZINE HCL 10 MG TABLET PO SCH (08:14)
[2023-03-02 09:11] LABS: HEMATOCRIT 39.1 % (32.4-45.2); HEMOGLOBIN 12.4 GM/dL (10.7-15.3); MCH 24.6 pg (25.7-33.7); MCHC 31.9 g/dl (32.0-36.0); MEAN CELL VOLUME 77.2 fl (80-96); MEAN PLT VOLUME 7.6 fl (7.5-11.1); PLATELET COUNT 259 10^3/uL (134-434); RBC 5.06 M/mm3 (3.60-5.2); RDW 16.3 % (11.6-15.6); WHITE BLOOD COUNT 11.8 K/mm3 (4.0-10.0)
[2023-03-02 09:53] LABS: ANISOCYTOSIS 3+; MACROCYTOSIS 0
[2023-03-02 09:55] LABS: POTASSIUM 5.1 mmol/L (3.5-5.1)
[2023-03-02 09:58] LABS: CALCIUM 9.3 mg/dL (8.5-10.1)
[2023-03-02 10:02] LABS: ALBUMIN 2.7 g/dl (3.4-5.0); BLOOD UREA NITROGEN 32.2 mg/dL (7-18); CREATININE 0.9 mg/dL (0.55-1.3)
[2023-03-02 10:04] LABS: BILIRUBIN,TOTAL 0.4 mg/dL (0.2-1); TOT PROT 5.7 g/dl (6.4-8.2)
[2023-03-02] MEDS: LOSARTAN POTASSIUM 50 MG TABLET PO SCH (11:02)
[2023-03-02] MEDS: CARVEDILOL 6.25 MG TABLET (FP) PO SCH ×2 (11:02→21:23)
[2023-03-02] MEDS: PRAMIPEXOLE DIHYDROCHLORIDE 0.5 MG TABLET PO SCH ×2 (11:02→21:23)
[2023-03-02] MEDS: guaiFENesin 600 MG TABLET.ER (FP) PO SCH ×2 (11:02→21:23)
[2023-03-02] MEDS: ACETAMINOPHEN 325 MG TABLET (FP) PO PRN (11:02)
[2023-03-02] MEDS: NYSTATIN POWDER 100,000 UNITS/GM - 15 GM TOPICAL POWDER TP SCH ×2 (11:03→21:24)
[2023-03-02] MEDS: predniSONE 20 MG TABLET (UD) PO SCH (11:03)
[2023-03-02] MEDS: FLUTICASONE/UMECLIDIN/VILANTER(200-62.5-25 TRELEGY ELLIPTA) INAHLER IH SCH (11:32)
[2023-03-02] MEDS: ISOSORBIDE DINITRATE 20 MG TABLET PO SCH ×2 (12:12→18:15)
[2023-03-02] MEDS: hydrALAZINE HCL 25 MG TABLET (FP) PO SCH ×2 (13:05→21:23)
[2023-03-02] MEDS: ALBUTEROL SO4 0.083% IH SOL 2.5 MG/3 ML VIAL.NEB. NEB SCH ×2 (14:40→20:29)
[2023-03-02] MEDS: RIVAROXABAN 20 MG TABLET PO SCH (18:15)
[2023-03-02] MEDS: ROSUVASTATIN CA 10 MG TABLET PO SCH (21:23)
[2023-03-02] MEDS: guaiFENesin/CODEINE 10 ML UNIT-DOSE CUPS PO SCH (21:23)
[2023-03-03] MEDS: metFORMIN HCL 500 MG TABLET (FP) PO SCH ×2 (06:23→17:11)
[2023-03-03] MEDS: INSULIN (LEVEMIR) 100 UNITS/ML UNITS SQ SCH ×2 (06:23→21:43)
[2023-03-03] MEDS: hydrALAZINE HCL 25 MG TABLET (FP) PO SCH ×3 (06:23→21:42)
[2023-03-03] MEDS: INSULIN SLIDING SCALE (NOVOLOG) 1 VIAL SQ SCH ×4 (06:33→21:43)
[2023-03-03] MEDS: ALBUTEROL SO4 0.083% IH SOL 2.5 MG/3 ML VIAL.NEB. NEB SCH ×3 (08:58→21:17)
[2023-03-03] MEDS: LOSARTAN POTASSIUM 50 MG TABLET PO SCH (09:32)
[2023-03-03] MEDS: predniSONE 20 MG TABLET (UD) PO SCH (09:33)
[2023-03-03] MEDS: guaiFENesin 600 MG TABLET.ER (FP) PO SCH ×2 (09:33→21:42)
[2023-03-03] MEDS: CARVEDILOL 6.25 MG TABLET (FP) PO SCH ×2 (09:34→21:43)
[2023-03-03] MEDS: ISOSORBIDE DINITRATE 20 MG TABLET PO SCH ×2 (09:34→17:12)
[2023-03-03] MEDS: PRAMIPEXOLE DIHYDROCHLORIDE 0.5 MG TABLET PO SCH ×2 (09:34→21:43)
[2023-03-03] MEDS: NYSTATIN POWDER 100,000 UNITS/GM - 15 GM TOPICAL POWDER TP SCH ×2 (09:36→21:46)
[2023-03-03] MEDS: FLUTICASONE/UMECLIDIN/VILANTER(200-62.5-25 TRELEGY ELLIPTA) INAHLER IH SCH (09:36)
[2023-03-03] MEDS: amLODIPine BESYLATE 5 MG TABLET (FP) PO SCH (11:45)
[2023-03-03] MEDS: RIVAROXABAN 20 MG TABLET PO SCH (17:11)
[2023-03-03] MEDS ORDERED: INSULIN (NOVOLOG) ASPART 100 UNITS/ML 10ML VIAL ONE (21:18)
[2023-03-03] MEDS: guaiFENesin/CODEINE 10 ML UNIT-DOSE CUPS PO SCH (21:43)
[2023-03-03] MEDS: ROSUVASTATIN CA 10 MG TABLET PO SCH (21:43)
[2023-03-04] MEDS ORDERED: INSULIN (NOVOLOG) ASPART 100 UNITS/ML 10ML VIAL ONE ×4 (05:44→21:38)
[2023-03-04] MEDS: INSULIN (LEVEMIR) 100 UNITS/ML UNITS SQ SCH ×2 (06:02→21:39)
[2023-03-04] MEDS: metFORMIN HCL 500 MG TABLET (FP) PO SCH ×2 (06:03→17:48)
[2023-03-04] MEDS: hydrALAZINE HCL 25 MG TABLET (FP) PO SCH ×2 (06:03→15:49)
[2023-03-04] MEDS: INSULIN SLIDING SCALE (NOVOLOG) 1 VIAL SQ SCH ×4 (06:12→21:40)
[2023-03-04] MEDS: ALBUTEROL SO4 0.083% IH SOL 2.5 MG/3 ML VIAL.NEB. NEB SCH ×3 (07:55→20:44)
[2023-03-04] MEDS: PRAMIPEXOLE DIHYDROCHLORIDE 0.5 MG TABLET PO SCH ×2 (09:20→21:35)
[2023-03-04] MEDS: predniSONE 20 MG TABLET (UD) PO SCH (09:20)
[2023-03-04] MEDS: guaiFENesin 600 MG TABLET.ER (FP) PO SCH ×2 (09:20→21:35)
[2023-03-04] MEDS: ISOSORBIDE DINITRATE 20 MG TABLET PO SCH ×2 (09:20→17:48)
[2023-03-04] MEDS: amLODIPine BESYLATE 5 MG TABLET (FP) PO SCH (09:20)
[2023-03-04] MEDS: CARVEDILOL 6.25 MG TABLET (FP) PO SCH ×2 (09:20→21:35)
[2023-03-04] MEDS: LOSARTAN POTASSIUM 50 MG TABLET PO SCH (09:20)
[2023-03-04] MEDS: NYSTATIN POWDER 100,000 UNITS/GM - 15 GM TOPICAL POWDER TP SCH ×2 (09:21→21:36)
[2023-03-04] MEDS: FLUTICASONE/UMECLIDIN/VILANTER(200-62.5-25 TRELEGY ELLIPTA) INAHLER IH SCH (09:22)
[2023-03-04] MEDS: ACETAMINOPHEN 325 MG TABLET (FP) PO PRN (09:54)
[2023-03-04 10:43] LABS: CALCIUM 8.6 mg/dL (8.5-10.1); POTASSIUM 4.8 mmol/L (3.5-5.1)
[2023-03-04 10:44] LABS: ALBUMIN 2.4 g/dl (3.4-5.0); BLOOD UREA NITROGEN 25.7 mg/dL (7-18)
[2023-03-04 10:47] LABS: CREATININE 0.8 mg/dL (0.55-1.3)
[2023-03-04 10:48] LABS: BILIRUBIN,TOTAL 0.3 mg/dL (0.2-1)
[2023-03-04 10:49] LABS: TOT PROT 5.2 g/dl (6.4-8.2)
[2023-03-04] MEDS ORDERED: amLODIPine BESYLATE 5 MG TABLET (FP) PO ONE (10:49)
[2023-03-04] MEDS: RIVAROXABAN 20 MG TABLET PO SCH (17:48)
[2023-03-04] MEDS: ROSUVASTATIN CA 10 MG TABLET PO SCH (21:35)
[2023-03-04] MEDS: hydrALAZINE HCL 50 MG TABLET (FP) PO SCH (21:35)
[2023-03-04] MEDS: guaiFENesin/CODEINE 10 ML UNIT-DOSE CUPS PO SCH (21:36)
[2023-03-04] MEDS ORDERED: HYDROCHLOROTHIAZIDE 25 MG TABLET (FP) PO SCH (22:00)
[2023-03-05] MEDS ORDERED: hydrALAZINE HCL 25 MG TABLET (FP) PO ONE (04:49)
[2023-03-05] MEDS: INSULIN (LEVEMIR) 100 UNITS/ML UNITS SQ SCH ×2 (06:42→21:43)
[2023-03-05] MEDS: metFORMIN HCL 500 MG TABLET (FP) PO SCH ×2 (06:42→17:43)
[2023-03-05] MEDS: INSULIN SLIDING SCALE (NOVOLOG) 1 VIAL SQ SCH ×4 (06:43→21:41)
[2023-03-05] MEDS: ALBUTEROL SO4 0.083% IH SOL 2.5 MG/3 ML VIAL.NEB. NEB SCH ×3 (07:44→19:51)
[2023-03-05 09:42] LABS: BASO % 0.4 % (0-2.0); EOS % 0.1 % (0-4.5); HEMATOCRIT 38.2 % (32.4-45.2); HEMOGLOBIN 11.7 GM/dL (10.7-15.3); LYMPH % 12.8 % (8-40); MCH 24.1 pg (25.7-33.7); MCHC 30.7 g/dl (32.0-36.0); MEAN CELL VOLUME 78.8 fl (80-96); MEAN PLT VOLUME 7.8 fl (7.5-11.1); MONO % 5.9 % (3.8-10.2); NEUT % 80.8 % (42.8-82.8); PLATELET COUNT 229 10^3/uL (134-434); RBC 4.85 M/mm3 (3.60-5.2); RDW 16.6 % (11.6-15.6); WHITE BLOOD COUNT 11.1 K/mm3 (4.0-10.0)
[2023-03-05] MEDS: guaiFENesin 600 MG TABLET.ER (FP) PO SCH ×2 (09:57→21:42)
[2023-03-05] MEDS: hydrALAZINE HCL 50 MG TABLET (FP) PO SCH ×2 (09:57→21:42)
[2023-03-05] MEDS: CARVEDILOL 6.25 MG TABLET (FP) PO SCH ×2 (09:57→21:42)
[2023-03-05] MEDS: amLODIPine BESYLATE 10 MG TABLET (FP) PO SCH (09:58)
[2023-03-05] MEDS: PRAMIPEXOLE DIHYDROCHLORIDE 0.5 MG TABLET PO SCH ×2 (09:58→21:42)
[2023-03-05] MEDS: LOSARTAN POTASSIUM 50 MG TABLET PO SCH (09:58)
[2023-03-05] MEDS: predniSONE 10 MG TABLET (UD) PO SCH (09:58)
[2023-03-05 10:01] LABS: POTASSIUM 4.6 mmol/L (3.5-5.1)
[2023-03-05] MEDS: FLUTICASONE/UMECLIDIN/VILANTER(200-62.5-25 TRELEGY ELLIPTA) INAHLER IH SCH (10:01)
[2023-03-05] MEDS: NYSTATIN POWDER 100,000 UNITS/GM - 15 GM TOPICAL POWDER TP SCH ×2 (10:01→21:43)
[2023-03-05 10:11] LABS: BLOOD UREA NITROGEN 21.6 mg/dL (7-18); CALCIUM 9.3 mg/dL (8.5-10.1); MAGNESIUM 2.1 mg/dL (1.8-2.4)
[2023-03-05 10:12] LABS: ALBUMIN 2.5 g/dl (3.4-5.0)
[2023-03-05 10:15] LABS: CREATININE 0.8 mg/dL (0.55-1.3)
[2023-03-05 10:16] LABS: BILIRUBIN,TOTAL 0.3 mg/dL (0.2-1); TOT PROT 5.4 g/dl (6.4-8.2)
[2023-03-05] MEDS: ISOSORBIDE DINITRATE 20 MG TABLET PO SCH ×2 (11:53→17:55)
[2023-03-05] MEDS: RIVAROXABAN 20 MG TABLET PO SCH (17:43)
[2023-03-05] MEDS ORDERED: INSULIN (NOVOLOG) ASPART 100 UNITS/ML 10ML VIAL ONE ×2 (17:54→21:12)
[2023-03-05] MEDS: guaiFENesin/CODEINE 10 ML UNIT-DOSE CUPS PO SCH (21:42)
[2023-03-05] MEDS: ROSUVASTATIN CA 10 MG TABLET PO SCH (21:42)
[2023-03-06] MEDS: INSULIN SLIDING SCALE (NOVOLOG) 1 VIAL SQ SCH (06:30)
[2023-03-06] MEDS: INSULIN (LEVEMIR) 100 UNITS/ML UNITS SQ SCH (06:31)
[2023-03-06] MEDS: ACETAMINOPHEN 325 MG TABLET (FP) PO PRN (06:31)
[2023-03-06] MEDS: metFORMIN HCL 500 MG TABLET (FP) PO SCH (06:31)
[2023-03-06] MEDS ORDERED: INSULIN (NOVOLOG) ASPART 100 UNITS/ML 10ML VIAL ONE (07:15)
[2023-03-06] MEDS ORDERED: INSULIN (LEVEMIR) 100 UNITS/ML UNITS SQ ONE (07:15)
[2023-03-06] MEDS: ALBUTEROL SO4 0.083% IH SOL 2.5 MG/3 ML VIAL.NEB. NEB SCH (07:39)
[2023-03-06] MEDS: amLODIPine BESYLATE 10 MG TABLET (FP) PO SCH (09:29)
[2023-03-06] MEDS: LOSARTAN POTASSIUM 50 MG TABLET PO SCH (09:29)
[2023-03-06] MEDS: predniSONE 10 MG TABLET (UD) PO SCH (09:29)
[2023-03-06] MEDS: ISOSORBIDE DINITRATE 20 MG TABLET PO SCH (09:29)
[2023-03-06] MEDS: guaiFENesin 600 MG TABLET.ER (FP) PO SCH (09:30)
[2023-03-06] MEDS: PRAMIPEXOLE DIHYDROCHLORIDE 0.5 MG TABLET PO SCH (09:30)
[2023-03-06] MEDS: CARVEDILOL 6.25 MG TABLET (FP) PO SCH (09:30)
[2023-03-06] MEDS: hydrALAZINE HCL 50 MG TABLET (FP) PO SCH (09:30)
[2023-03-06] MEDS: NYSTATIN POWDER 100,000 UNITS/GM - 15 GM TOPICAL POWDER TP SCH (09:31)
[2023-03-06] MEDS: FLUTICASONE/UMECLIDIN/VILANTER(200-62.5-25 TRELEGY ELLIPTA) INAHLER IH SCH (09:31)
[2023-03-06 09:54] VITALS: BP 142/61; PULSE 83; RESP 20; TEMP 97.8
[2023-03-06 10:13] LABS: BASO % 0.1 % (0-2.0); EOS % 0.1 % (0-4.5); HEMATOCRIT 36.6 % (32.4-45.2); HEMOGLOBIN 11.4 GM/dL (10.7-15.3); LYMPH % 14.7 % (8-40); MCH 24.5 pg (25.7-33.7); MCHC 31.3 g/dl (32.0-36.0); MEAN CELL VOLUME 78.4 fl (80-96); MEAN PLT VOLUME 7.8 fl (7.5-11.1); MONO % 6.1 % (3.8-10.2); PLATELET COUNT 205 10^3/uL (134-434); RBC 4.67 M/mm3 (3.60-5.2); RDW 17.1 % (11.6-15.6); WHITE BLOOD COUNT 9.1 K/mm3 (4.0-10.0)
[2023-03-06 10:31] LABS: POTASSIUM 5.1 mmol/L (3.5-5.1)
[2023-03-06 11:03] LABS: CALCIUM 8.7 mg/dL (8.5-10.1)
[2023-03-06 11:04] LABS: ALBUMIN 2.5 g/dl (3.4-5.0); BLOOD UREA NITROGEN 25.3 mg/dL (7-18); MAGNESIUM 1.9 mg/dL (1.8-2.4)
[2023-03-06 11:07] LABS: CREATININE 1.1 mg/dL (0.55-1.3)
[2023-03-06 11:09] LABS: BILIRUBIN,TOTAL 0.4 mg/dL (0.2-1); TOT PROT 5.1 g/dl (6.4-8.2)
== END 2023-03-06 11:57 | DRG 191 ==
LOC: JER 09:19 → JERBED 12:54 → J8W 02-21 04:01
PROVIDERS: ADMIT Internal Medicine; ATTEND Nurse Practitioner Acute Care
DX: J44.1 Chronic obstructive pulmonary disease with (acute) exacerbation (principal); I42.8 Other cardiomyopathies; I50.32 Chronic diastolic (congestive) heart failure; Z68.41 Body mass index [BMI] 40.0-44.9, adult; J10.1 Influenza due to other identified influenza virus with other respiratory manifestations; E78.5 Hyperlipidemia, unspecified; I25.10 Atherosclerotic heart disease of native coronary artery without angina pectoris; I11.0 Hypertensive heart disease with heart failure; I48.91 Unspecified atrial fibrillation; E11.649 Type 2 diabetes mellitus with hypoglycemia without coma; I16.0 Hypertensive urgency; E66.01 Morbid (severe) obesity due to excess calories; E87.5 Hyperkalemia; G47.33 Obstructive sleep apnea (adult) (pediatric); Z86.73 Personal history of transient ischemic attack (TIA), and cerebral infarction without residual deficits; Z95.0 Presence of cardiac pacemaker; Z85.820 Personal history of malignant melanoma of skin
CPT/HCPCS: 0241U-QW; 36415; 71045-TC-FY; 80048; 80053; 81003; 82947; 82962; 83036; 83690; 83735; 83880; 84100; 84484; 85025; 85610; 85730; 87086; 87635; 93005; 93010; 94640; 97116-GP; 97161-GP; 99285-25

== ENCOUNTER 2024-04-12 11:26 | Inpatient (IN) | payer OTHER, BC ==
[2024-04-12] MEDS: ALBUTEROL SO4 2.5/IPRATROPIUM 0.5 INH SOL 3 ML VIAL.NEB. NEB SCH ×2 (12:00→16:35)
[2024-04-12] MEDS ORDERED: ALBUTEROL SO4 2.5/IPRATROPIUM 0.5 INH SOL 3 ML VIAL.NEB. NEB ONE (12:28)
[2024-04-12] MEDS ORDERED: methylPREDNISolone NA SUCC 125 MG/2 ML VIAL ONE (12:28)
[2024-04-12] MEDS ORDERED: AZITHROMYCIN IVPB 500 MG in DEXTROSE 5%-WATER - 250 ML IVPB ONE (12:34)
[2024-04-12] MEDS: methylPREDNISolone NA SUCC 125 MG/2 ML VIAL IVPUSH ONE (12:38)
[2024-04-12 12:40] LABS: BASO % 0.7 % (0-2.0); EOS % 0.2 % (0-4.5); HEMOGLOBIN 11.6 GM/dL (10.7-15.3); LYMPH % 10.8 % (8-40); MCH 25.9 pg (25.7-33.7); MCHC 34.1 g/dl (32.0-36.0); MEAN PLT VOLUME 7.4 fl (7.5-11.1); MONO % 9.2 % (3.8-10.2); NEUT % 79.1 % (42.8-82.8); PLATELET COUNT 178 10^3/uL (134-434); RBC 4.47 M/mm3 (3.60-5.2); RDW 18.5 % (11.6-15.6); WHITE BLOOD COUNT 8.1 K/mm3 (4.0-10.0)
[2024-04-12] MEDS ORDERED: AZITHROMYCIN IVPB 500 MG/250 ML BAG IVPB ONE (12:40)
[2024-04-12 12:48] LABS: INR 1.14 (0.83-1.09); PROTHROMBIN TIME (PATIENT) 12.4 SEC (9.7-13.0)
[2024-04-12 12:50] LABS: ACTIVATED PTT 28.1 SECONDS (25.2-36.5)
[2024-04-12] MEDS: AZITHROMYCIN IVPB 500 MG/250 ML BAG IVPB ONE (12:50)
[2024-04-12 12:53] LABS: VENOUS BASE EXCESS -0.9 mmol/L (-2-2); VENOUS PCO2 40.9 mmHg (38-52); VENOUS PH 7.387 (7.310-7.410)
[2024-04-12 13:00] LABS: POTASSIUM 4.1 mmol/L (3.5-5.1)
[2024-04-12 13:02] LABS: CALCIUM 9.1 mg/dL (8.5-10.1)
[2024-04-12 13:03] LABS: ALBUMIN 2.8 g/dl (3.4-5.0); BLOOD UREA NITROGEN 22.6 mg/dL (7-18); MAGNESIUM 2.2 mg/dL (1.8-2.4)
[2024-04-12 13:06] LABS: CREATININE 0.9 mg/dL (0.55-1.3); PHOSPHOROUS 3.2 mg/dL (2.5-4.9)
[2024-04-12 13:07] LABS: BILIRUBIN,TOTAL 0.5 mg/dL (0.2-1); TOT PROT 5.7 g/dl (6.4-8.2)
[2024-04-12] MEDS: INSULIN ASPART SLIDING SCALE (NOVOLOG) 1 VIAL SQ SCH (17:24)
[2024-04-12 17:29] LABS: HIV INTERPRETATION NEGATIVE (NEGATIVE)
[2024-04-12] MEDS: FUROSEMIDE 40 MG/4 ML INJECTABLE VIAL IVPUSH ONE (17:30)
[2024-04-12 18:00] VITALS: BMI 38.9
[2024-04-12] MEDS: RIVAROXABAN 20 MG TABLET PO SCH (18:31)
[2024-04-12] MEDS: methylPREDNISolone NA SUCC 40 MG/1 ML VIAL IVPUSH SCH (19:25)
[2024-04-12] MEDS: PRAMIPEXOLE DIHYDROCHLORIDE 0.5 MG TABLET PO SCH (21:54)
[2024-04-12] MEDS: ROSUVASTATIN CA 10 MG TABLET PO SCH (21:54)
[2024-04-12] MEDS: hydrALAZINE HCL 10 MG TABLET PO SCH (21:55)
[2024-04-12] MEDS: INSULIN (LEVEMIR) 100 UNITS/ML UNITS SQ SCH (21:55)
[2024-04-12] MEDS: CARVEDILOL 6.25 MG TABLET (FP) PO SCH (21:55)
[2024-04-12] MEDS ORDERED: PATIENT'S OWN MEDICATION (NON-FORMULARY) (Insulin Glargine,Hum.Rec.Anlog 100 UNITS/ML Ins) SQ SCH (22:00)
[2024-04-13] MEDS: guaiFENesin/D-METHORPHAN HB 10 ML UNIT-DOSE CUPS PO PRN (01:39)
[2024-04-13 07:53] LABS: BASO % 0.1 % (0-2.0); HEMATOCRIT 34.5 % (32.4-45.2); MCH 24.9 pg (25.7-33.7); MEAN CELL VOLUME 77.9 fl (80-96); MEAN PLT VOLUME 7.7 fl (7.5-11.1); MONO % 2.8 % (3.8-10.2); NEUT % 90.1 % (42.8-82.8); PLATELET COUNT 134 10^3/uL (134-434); RBC 4.43 M/mm3 (3.60-5.2); RDW 19.2 % (11.6-15.6); WHITE BLOOD COUNT 3.2 K/mm3 (4.0-10.0)
[2024-04-13 08:18] LABS: POTASSIUM 3.8 mmol/L (3.5-5.1)
[2024-04-13 08:20] LABS: CALCIUM 8.6 mg/dL (8.5-10.1)
[2024-04-13 08:21] LABS: ALBUMIN 2.7 g/dl (3.4-5.0); BLOOD UREA NITROGEN 36.5 mg/dL (7-18); MAGNESIUM 2.3 mg/dL (1.8-2.4)
[2024-04-13 08:23] LABS: PHOSPHOROUS 3.8 mg/dL (2.5-4.9)
[2024-04-13 08:24] LABS: CREATININE 1.2 mg/dL (0.55-1.3)
[2024-04-13 08:25] LABS: BILIRUBIN,TOTAL 0.4 mg/dL (0.2-1); TOT PROT 5.6 g/dl (6.4-8.2)
[2024-04-13] MEDS ORDERED: AZITHROMYCIN IVPB 500 MG/250 ML BAG IVPB SCH (10:00)
[2024-04-13] MEDS ORDERED: AZITHROMYCIN IVPB 500 MG in DEXTROSE 5%-WATER - 250 ML IVPB SCH (10:00)
[2024-04-13] MEDS: FUROSEMIDE 40 MG/4 ML INJECTABLE VIAL IVPUSH SCH (10:22)
[2024-04-13] MEDS: ISOSORBIDE DINITRATE 20 MG TABLET PO SCH (10:23)
[2024-04-13] MEDS: amLODIPine BESYLATE 5 MG TABLET (FP) PO SCH (10:23)
[2024-04-13] MEDS: PANTOPRAZOLE 40 MG TABLET PO SCH (10:23)
[2024-04-13] MEDS: AZITHROMYCIN IVPB 500 MG/250 ML BAG IVPB SCH (10:24)
[2024-04-13] MEDS: FLUTICASONE/UMECLIDIN/VILANTER(200-62.5-25 TRELEGY ELLIPTA) INAHLER IH SCH (14:41)
[2024-04-13] MEDS: INSULIN (LEVEMIR) 100 UNITS/ML UNITS SQ SCH (22:20)
[2024-04-14 08:29] LABS: HEMATOCRIT 32.8 % (32.4-45.2); HEMOGLOBIN 10.5 GM/dL (10.7-15.3); MCH 24.9 pg (25.7-33.7); MCHC 32.1 g/dl (32.0-36.0); MEAN CELL VOLUME 77.5 fl (80-96); MEAN PLT VOLUME 7.7 fl (7.5-11.1); PLATELET COUNT 154 10^3/uL (134-434); RBC 4.24 M/mm3 (3.60-5.2); RDW 18.6 % (11.6-15.6); WHITE BLOOD COUNT 6.5 K/mm3 (4.0-10.0)
[2024-04-14 08:42] LABS: POTASSIUM 4.2 mmol/L (3.5-5.1)
[2024-04-14 08:45] LABS: ALBUMIN 2.8 g/dl (3.4-5.0); BLOOD UREA NITROGEN 46.9 mg/dL (7-18)
[2024-04-14 08:49] LABS: BILIRUBIN,TOTAL 0.3 mg/dL (0.2-1)
[2024-04-14 08:50] LABS: TOT PROT 5.4 g/dl (6.4-8.2)
[2024-04-14] MEDS: INSULIN (LEVEMIR) 100 UNITS/ML UNITS SQ SCH (21:27)
[2024-04-14] MEDS: guaiFENesin/CODEINE 10 ML UNIT-DOSE CUPS PO PRN (23:50)
[2024-04-15 08:22] LABS: HEMATOCRIT 33.8 % (32.4-45.2); HEMOGLOBIN 10.6 GM/dL (10.7-15.3); MCH 24.5 pg (25.7-33.7); MCHC 31.3 g/dl (32.0-36.0); MEAN CELL VOLUME 78.1 fl (80-96); MEAN PLT VOLUME 7.7 fl (7.5-11.1); PLATELET COUNT 167 10^3/uL (134-434); RBC 4.33 M/mm3 (3.60-5.2); RDW 18.9 % (11.6-15.6); WHITE BLOOD COUNT 5.4 K/mm3 (4.0-10.0)
[2024-04-15 08:41] LABS: POTASSIUM 4.3 mmol/L (3.5-5.1)
[2024-04-15 08:46] LABS: CALCIUM 8.8 mg/dL (8.5-10.1)
[2024-04-15 08:49] LABS: CREATININE 1.2 mg/dL (0.55-1.3)
[2024-04-15] MEDS: LOSARTAN POTASSIUM 25 MG TABLET PO SCH (09:02)
[2024-04-15] MEDS: methylPREDNISolone NA SUCC 40 MG/1 ML VIAL IVPUSH SCH (11:01)
[2024-04-15] MEDS: POLYETHYLENE GLYCOL (HEALTHYLAX) 3350 17 GM PACKET PO SCH (11:46)
[2024-04-15] MEDS: INSULIN (LEVEMIR) 100 UNITS/ML UNITS SQ SCH ×2 (11:47→21:14)
[2024-04-15] MEDS ORDERED: methylPREDNISolone NA SUCC 40 MG/1 ML VIAL IVPUSH SCH (13:00)
[2024-04-15] MEDS ORDERED: INSULIN (LEVEMIR) 100 UNITS/ML UNITS SQ SCH (22:00)
[2024-04-16 07:21] LABS: HEMATOCRIT 34.6 % (32.4-45.2); MCH 24.8 pg (25.7-33.7); MEAN CELL VOLUME 77.7 fl (80-96); MEAN PLT VOLUME 7.8 fl (7.5-11.1); PLATELET COUNT 185 10^3/uL (134-434); RBC 4.45 M/mm3 (3.60-5.2); RDW 18.6 % (11.6-15.6); WHITE BLOOD COUNT 4.5 K/mm3 (4.0-10.0)
[2024-04-16] MEDS: PATIENT'S OWN MEDICATION (NON-FORMULARY) (Olmesartan Medoxomil 20 MG Tablet) PO SCH (07:44)
[2024-04-16] MEDS: LOSARTAN POTASSIUM 50 MG TABLET PO SCH (07:45)
[2024-04-16 07:46] LABS: POTASSIUM 4.6 mmol/L (3.5-5.1)
[2024-04-16 07:48] LABS: CALCIUM 8.4 mg/dL (8.5-10.1)
[2024-04-16 07:51] LABS: BLOOD UREA NITROGEN 42.6 mg/dL (7-18)
[2024-04-16] MEDS ORDERED: INSULIN (LEVEMIR) 100 UNITS/ML UNITS SQ SCH (12:13)
[2024-04-16] MEDS: INSULIN (NOVOLOG) ASPART 100 UNITS/ML 10ML VIAL SQ SCH (16:37)
[2024-04-16] MEDS: guaiFENesin/CODEINE 10 ML UNIT-DOSE CUPS PO PRN (16:38)
[2024-04-16] MEDS: INSULIN (LEVEMIR) 100 UNITS/ML UNITS SQ SCH (21:27)
[2024-04-17] MEDS: guaiFENesin/D-METHORPHAN HB 10 ML UNIT-DOSE CUPS PO PRN (00:03)
[2024-04-17 08:04] LABS: POTASSIUM 4.3 mmol/L (3.5-5.1)
[2024-04-17 08:08] LABS: CALCIUM 8.3 mg/dL (8.5-10.1)
[2024-04-17 08:09] LABS: ALBUMIN 2.7 g/dl (3.4-5.0); BLOOD UREA NITROGEN 43.5 mg/dL (7-18); MAGNESIUM 2.4 mg/dL (1.8-2.4)
[2024-04-17 08:11] LABS: HEMATOCRIT 33.8 % (32.4-45.2); HEMOGLOBIN 10.8 GM/dL (10.7-15.3); MCH 24.8 pg (25.7-33.7); MEAN CELL VOLUME 77.8 fl (80-96); MEAN PLT VOLUME 7.6 fl (7.5-11.1); PLATELET COUNT 200 10^3/uL (134-434); RBC 4.35 M/mm3 (3.60-5.2); RDW 18.1 % (11.6-15.6); WHITE BLOOD COUNT 5.4 K/mm3 (4.0-10.0)
[2024-04-17 08:12] LABS: CREATININE 0.9 mg/dL (0.55-1.3)
[2024-04-17 08:13] LABS: BILIRUBIN,TOTAL 0.4 mg/dL (0.2-1); TOT PROT 5.6 g/dl (6.4-8.2)
[2024-04-17] MEDS: INSULIN (NOVOLOG) ASPART 100 UNITS/ML 10ML VIAL SQ SCH (11:40)
[2024-04-17] MEDS: ALBUTEROL SO4 2.5/IPRATROPIUM 0.5 INH SOL 3 ML VIAL.NEB. NEB PRN (15:35)
[2024-04-17] MEDS: INSULIN (LEVEMIR) 100 UNITS/ML UNITS SQ SCH (22:01)
[2024-04-18] MEDS: FUROSEMIDE 40 MG/4 ML INJECTABLE VIAL IVPUSH SCH (06:17)
[2024-04-18 08:21] LABS: HEMOGLOBIN 11.6 GM/dL (10.7-15.3); MCH 24.9 pg (25.7-33.7); MCHC 32.1 g/dl (32.0-36.0); MEAN CELL VOLUME 77.5 fl (80-96); MEAN PLT VOLUME 7.6 fl (7.5-11.1); PLATELET COUNT 233 10^3/uL (134-434); RBC 4.65 M/mm3 (3.60-5.2); WHITE BLOOD COUNT 5.6 K/mm3 (4.0-10.0)
[2024-04-18 09:04] LABS: POTASSIUM 4.3 mmol/L (3.5-5.1)
[2024-04-18 09:06] LABS: ALBUMIN 2.9 g/dl (3.4-5.0); CALCIUM 8.5 mg/dL (8.5-10.1)
[2024-04-18 09:07] LABS: BLOOD UREA NITROGEN 45.6 mg/dL (7-18); MAGNESIUM 2.5 mg/dL (1.8-2.4)
[2024-04-18 09:09] LABS: CREATININE 1.2 mg/dL (0.55-1.3)
[2024-04-18 09:11] LABS: BILIRUBIN,TOTAL 0.4 mg/dL (0.2-1)
[2024-04-18] MEDS: INSULIN (LEVEMIR) 100 UNITS/ML UNITS SQ SCH (11:08)
[2024-04-19 07:31] LABS: HEMATOCRIT 36.9 % (32.4-45.2); MCHC 32.4 g/dl (32.0-36.0); MEAN CELL VOLUME 77.3 fl (80-96); MEAN PLT VOLUME 7.7 fl (7.5-11.1); PLATELET COUNT 245 10^3/uL (134-434); RBC 4.78 M/mm3 (3.60-5.2); RDW 17.8 % (11.6-15.6); WHITE BLOOD COUNT 6.5 K/mm3 (4.0-10.0)
[2024-04-19 07:32] LABS: POTASSIUM 4.6 mmol/L (3.5-5.1)
[2024-04-19 07:41] LABS: BILIRUBIN,TOTAL 0.4 mg/dL (0.2-1)
[2024-04-19 07:43] LABS: PHOSPHOROUS 3.1 mg/dL (2.5-4.9)
[2024-04-19 07:44] LABS: TOT PROT 5.7 g/dl (6.4-8.2)
[2024-04-19 07:45] LABS: ALBUMIN 2.8 g/dl (3.4-5.0); BLOOD UREA NITROGEN 50.1 mg/dL (7-18); CALCIUM 8.9 mg/dL (8.5-10.1)
[2024-04-19 07:46] LABS: MAGNESIUM 2.5 mg/dL (1.8-2.4)
[2024-04-19 07:47] LABS: CREATININE 1.2 mg/dL (0.55-1.3)
[2024-04-19] MEDS: methylPREDNISolone NA SUCC 40 MG/1 ML VIAL IVPUSH SCH (09:29)
[2024-04-19] MEDS: INSULIN (NOVOLOG) ASPART 100 UNITS/ML 10ML VIAL SQ SCH (11:21)
[2024-04-19] MEDS: guaiFENesin/CODEINE 10 ML UNIT-DOSE CUPS PO PRN (17:09)
[2024-04-19] MEDS: INSULIN (LEVEMIR) 100 UNITS/ML UNITS SQ SCH (21:51)
[2024-04-20 07:17] LABS: HEMATOCRIT 35.9 % (32.4-45.2); HEMOGLOBIN 11.8 GM/dL (10.7-15.3); MCH 25.4 pg (25.7-33.7); MEAN CELL VOLUME 77.1 fl (80-96); MEAN PLT VOLUME 7.5 fl (7.5-11.1); PLATELET COUNT 230 10^3/uL (134-434); RBC 4.65 M/mm3 (3.60-5.2); RDW 18.5 % (11.6-15.6)
[2024-04-20 07:32] LABS: POTASSIUM 4.3 mmol/L (3.5-5.1)
[2024-04-20 07:33] LABS: CALCIUM 8.6 mg/dL (8.5-10.1)
[2024-04-20 07:34] LABS: ALBUMIN 2.7 g/dl (3.4-5.0); BLOOD UREA NITROGEN 50.2 mg/dL (7-18)
[2024-04-20 07:36] LABS: MAGNESIUM 2.3 mg/dL (1.8-2.4)
[2024-04-20 07:39] LABS: BILIRUBIN,TOTAL 0.6 mg/dL (0.2-1)
[2024-04-20 07:57] LABS: TOT PROT 5.4 g/dl (6.4-8.2)
[2024-04-20] MEDS ORDERED: INSULIN (LEVEMIR) 100 UNITS/ML UNITS SQ SCH ×2 (09:15)
[2024-04-20] MEDS ORDERED: ACETAMINOPHEN 1000 MG/100 ML BAG IVPB PRN (10:33)
[2024-04-20] MEDS: FUROSEMIDE 40 MG/4 ML INJECTABLE VIAL IVPUSH SCH (10:33)
[2024-04-20] MEDS: ACETAMINOPHEN 325 MG TABLET (FP) PO PRN ×2 (10:38→10:40)
[2024-04-20] MEDS: INSULIN (NOVOLOG) ASPART 100 UNITS/ML 10ML VIAL SQ ONE (11:37)
[2024-04-20] MEDS: INSULIN (NOVOLOG) ASPART 100 UNITS/ML 10ML VIAL SQ SCH (13:58)
[2024-04-21] MEDS: INSULIN (LEVEMIR) 100 UNITS/ML UNITS SQ SCH ×2 (06:38→21:07)
[2024-04-21 07:50] LABS: HEMATOCRIT 36.7 % (32.4-45.2); HEMOGLOBIN 12.1 GM/dL (10.7-15.3); MCH 25.3 pg (25.7-33.7); MEAN CELL VOLUME 76.5 fl (80-96); MEAN PLT VOLUME 7.4 fl (7.5-11.1); PLATELET COUNT 276 10^3/uL (134-434); RBC 4.79 M/mm3 (3.60-5.2); RDW 18.4 % (11.6-15.6)
[2024-04-21 08:09] LABS: POTASSIUM 4.5 mmol/L (3.5-5.1)
[2024-04-21 08:17] LABS: ALBUMIN 2.8 g/dl (3.4-5.0); CALCIUM 8.3 mg/dL (8.5-10.1); MAGNESIUM 2.3 mg/dL (1.8-2.4)
[2024-04-21 08:20] LABS: CREATININE 1.1 mg/dL (0.55-1.3)
[2024-04-21 08:21] LABS: PHOSPHOROUS 4.1 mg/dL (2.5-4.9)
[2024-04-21 08:22] LABS: BILIRUBIN,TOTAL 0.6 mg/dL (0.2-1); TOT PROT 5.6 g/dl (6.4-8.2)
[2024-04-21] MEDS: ALBUTEROL SO4 2.5/IPRATROPIUM 0.5 INH SOL 3 ML VIAL.NEB. NEB PRN (09:31)
[2024-04-21] MEDS: FUROSEMIDE 40 MG/4 ML INJECTABLE VIAL IVPUSH SCH (17:45)
[2024-04-21] MEDS: CODEINE SO4 30 MG TABLET PO PRN (21:06)
[2024-04-21] MEDS: methylPREDNISolone NA SUCC 40 MG/1 ML VIAL IVPUSH SCH (21:08)
[2024-04-22 08:23] LABS: HEMATOCRIT 40.2 % (32.4-45.2); MCH 25.1 pg (25.7-33.7); MCHC 32.4 g/dl (32.0-36.0); MEAN CELL VOLUME 77.5 fl (80-96); MEAN PLT VOLUME 7.6 fl (7.5-11.1); PLATELET COUNT 283 10^3/uL (134-434); RBC 5.18 M/mm3 (3.60-5.2); RDW 18.8 % (11.6-15.6); WHITE BLOOD COUNT 12.8 K/mm3 (4.0-10.0)
[2024-04-22 08:38] LABS: POTASSIUM 4.4 mmol/L (3.5-5.1)
[2024-04-22 08:53] LABS: CALCIUM 8.5 mg/dL (8.5-10.1)
[2024-04-22 08:54] LABS: BLOOD UREA NITROGEN 53.5 mg/dL (7-18); MAGNESIUM 2.3 mg/dL (1.8-2.4)
[2024-04-22 08:56] LABS: CREATININE 1.1 mg/dL (0.55-1.3)
[2024-04-22 08:57] LABS: PHOSPHOROUS 5.2 mg/dL (2.5-4.9)
[2024-04-22 08:58] LABS: BILIRUBIN,TOTAL 0.7 mg/dL (0.2-1)
[2024-04-22] MEDS: guaiFENesin/CODEINE 10 ML UNIT-DOSE CUPS PO PRN (21:15)
[2024-04-23 08:16] LABS: HEMOGLOBIN 12.1 GM/dL (10.7-15.3); MCH 25.4 pg (25.7-33.7); MCHC 32.7 g/dl (32.0-36.0); MEAN CELL VOLUME 77.8 fl (80-96); MEAN PLT VOLUME 7.8 fl (7.5-11.1); PLATELET COUNT 195 10^3/uL (134-434); RBC 4.76 M/mm3 (3.60-5.2); RDW 19.3 % (11.6-15.6)
[2024-04-23 08:43] LABS: POTASSIUM 4.3 mmol/L (3.5-5.1)
[2024-04-23 08:45] LABS: ALBUMIN 2.6 g/dl (3.4-5.0); BLOOD UREA NITROGEN 60.5 mg/dL (7-18); CALCIUM 8.3 mg/dL (8.5-10.1); MAGNESIUM 2.5 mg/dL (1.8-2.4)
[2024-04-23 08:48] LABS: CREATININE 1.3 mg/dL (0.55-1.3); PHOSPHOROUS 5.8 mg/dL (2.5-4.9)
[2024-04-23 08:50] LABS: BILIRUBIN,TOTAL 0.9 mg/dL (0.2-1); TOT PROT 5.5 g/dl (6.4-8.2)
[2024-04-23] MEDS: INSULIN (LEVEMIR) 100 UNITS/ML UNITS SQ SCH ×2 (12:28→21:31)
[2024-04-24] MEDS: INSULIN (LEVEMIR) 100 UNITS/ML UNITS SQ SCH (06:28)
[2024-04-24 08:07] LABS: HEMATOCRIT 37.4 % (32.4-45.2); HEMOGLOBIN 12.1 GM/dL (10.7-15.3); MCHC 32.2 g/dl (32.0-36.0); MEAN CELL VOLUME 77.5 fl (80-96); MEAN PLT VOLUME 7.7 fl (7.5-11.1); PLATELET COUNT 239 10^3/uL (134-434); RBC 4.83 M/mm3 (3.60-5.2); WHITE BLOOD COUNT 10.8 K/mm3 (4.0-10.0)
[2024-04-24 08:29] LABS: POTASSIUM 4.2 mmol/L (3.5-5.1)
[2024-04-24 08:32] LABS: CALCIUM 8.4 mg/dL (8.5-10.1)
[2024-04-24 08:33] LABS: ALBUMIN 2.6 g/dl (3.4-5.0); BLOOD UREA NITROGEN 55.1 mg/dL (7-18); MAGNESIUM 2.3 mg/dL (1.8-2.4)
[2024-04-24 08:36] LABS: CREATININE 1.3 mg/dL (0.55-1.3); PHOSPHOROUS 3.7 mg/dL (2.5-4.9)
[2024-04-24 08:37] LABS: BILIRUBIN,TOTAL 0.5 mg/dL (0.2-1)
[2024-04-24 08:38] LABS: TOT PROT 5.7 g/dl (6.4-8.2)
[2024-04-24] MEDS ORDERED: CEFTRIAXONE 1 GM in DEXTROSE 5%-WATER - 50 ML IVPB SCH (10:00)
[2024-04-24] MEDS: CEFTRIAXONE 1 G/50 ML PREMIX 50 ML IVPB SCH (10:01)
[2024-04-24] MEDS: DOXYCYCLINE HYCLATE 100 MG CAPSULE PO SCH (10:02)
[2024-04-25 07:48] LABS: HEMATOCRIT 33.8 % (32.4-45.2); HEMOGLOBIN 10.9 GM/dL (10.7-15.3); MCH 25.1 pg (25.7-33.7); MCHC 32.1 g/dl (32.0-36.0); MEAN CELL VOLUME 78.1 fl (80-96); MEAN PLT VOLUME 7.8 fl (7.5-11.1); PLATELET COUNT 225 10^3/uL (134-434); RBC 4.32 M/mm3 (3.60-5.2); RDW 18.8 % (11.6-15.6); WHITE BLOOD COUNT 10.5 K/mm3 (4.0-10.0)
[2024-04-25 08:03] LABS: CALCIUM 8.1 mg/dL (8.5-10.1)
[2024-04-25 08:04] LABS: ALBUMIN 2.4 g/dl (3.4-5.0); BLOOD UREA NITROGEN 51.2 mg/dL (7-18); MAGNESIUM 2.1 mg/dL (1.8-2.4)
[2024-04-25 08:07] LABS: CREATININE 1.1 mg/dL (0.55-1.3); PHOSPHOROUS 3.4 mg/dL (2.5-4.9)
[2024-04-25 08:08] LABS: BILIRUBIN,TOTAL 0.4 mg/dL (0.2-1); TOT PROT 5.2 g/dl (6.4-8.2)
[2024-04-25 09:54] VITALS: RESP 18
[2024-04-25] MEDS: INSULIN (LEVEMIR) 100 UNITS/ML UNITS SQ SCH (21:36)
[2024-04-25] MEDS: guaiFENesin/CODEINE 10 ML UNIT-DOSE CUPS PO PRN (23:12)
[2024-04-26] MEDS: FUROSEMIDE 40 MG TABLET (FP) PO SCH (05:47)
[2024-04-26] MEDS: INSULIN (LEVEMIR) 100 UNITS/ML UNITS SQ SCH (06:17)
[2024-04-26 08:12] LABS: POTASSIUM 4.2 mmol/L (3.5-5.1)
[2024-04-26 08:15] LABS: CALCIUM 8.3 mg/dL (8.5-10.1)
[2024-04-26 08:16] LABS: ALBUMIN 2.6 g/dl (3.4-5.0); BLOOD UREA NITROGEN 40.2 mg/dL (7-18)
[2024-04-26 08:19] LABS: CREATININE 0.9 mg/dL (0.55-1.3); PHOSPHOROUS 3.4 mg/dL (2.5-4.9)
[2024-04-26 08:20] LABS: BILIRUBIN,TOTAL 0.6 mg/dL (0.2-1)
[2024-04-26 08:21] LABS: TOT PROT 5.6 g/dl (6.4-8.2)
[2024-04-26 08:24] LABS: N-TERMINAL BNP 217.7 pg/ml (5-125)
[2024-04-26] MEDS ORDERED: ALBUTEROL SO4 2.5/IPRATROPIUM 0.5 INH SOL 3 ML VIAL.NEB. NEB PRN (08:37)
[2024-04-26] MEDS: ISOSORBIDE DINITRATE 20 MG TABLET PO SCH (09:19)
[2024-04-26] MEDS: CARVEDILOL 6.25 MG TABLET (FP) PO SCH (09:20)
[2024-04-26] MEDS: amLODIPine BESYLATE 5 MG TABLET (FP) PO SCH (09:23)
[2024-04-26] MEDS: LOSARTAN POTASSIUM 25 MG TABLET PO SCH (09:24)
[2024-04-26] MEDS: hydrALAZINE HCL 10 MG TABLET PO SCH (09:24)
[2024-04-26] MEDS: PRAMIPEXOLE DIHYDROCHLORIDE 0.5 MG TABLET PO SCH (09:24)
[2024-04-26] MEDS: DOXYCYCLINE HYCLATE 100 MG CAPSULE PO SCH (09:24)
[2024-04-26] MEDS: PANTOPRAZOLE 40 MG TABLET PO SCH (09:24)
[2024-04-26] MEDS: ACETAMINOPHEN 325 MG TABLET (FP) PO PRN (09:25)
[2024-04-26] MEDS: FLUTICASONE/UMECLIDIN/VILANTER(200-62.5-25 TRELEGY ELLIPTA) INAHLER IH SCH (09:30)
[2024-04-26] MEDS: INSULIN ASPART SLIDING SCALE (NOVOLOG) 1 VIAL SQ SCH (11:32)
[2024-04-26] MEDS: RIVAROXABAN 20 MG TABLET PO SCH (17:27)
[2024-04-26] MEDS: ROSUVASTATIN CA 10 MG TABLET PO SCH (21:59)
[2024-04-27 09:13] VITALS: BP 125/58; PULSE 82; TEMP 98.2
== END 2024-04-27 11:55 | DRG 291 ==
LOC: JER 11:26 → JERBED 14:09 → OBSVTOIN 15:26 → J4S 15:37
PROVIDERS: ADMIT Internal Medicine; ATTEND Internal Medicine
DX: I11.0 Hypertensive heart disease with heart failure (principal); I50.33 Acute on chronic diastolic (congestive) heart failure; J96.01 Acute respiratory failure with hypoxia; J15.8 Pneumonia due to other specified bacteria; J44.1 Chronic obstructive pulmonary disease with (acute) exacerbation; J44.0 Chronic obstructive pulmonary disease with (acute) lower respiratory infection; I25.10 Atherosclerotic heart disease of native coronary artery without angina pectoris; I48.91 Unspecified atrial fibrillation; E78.5 Hyperlipidemia, unspecified; G25.81 Restless legs syndrome; R91.8 Other nonspecific abnormal finding of lung field; E11.65 Type 2 diabetes mellitus with hyperglycemia; I42.8 Other cardiomyopathies; I48.0 Paroxysmal atrial fibrillation; Z95.0 Presence of cardiac pacemaker
CPT/HCPCS: 0241U-QW; 36415; 70491-TC; 71045-TC-FY; 71260-TC; 80048; 80053; 82550; 82803; 82962; 83036; 83735; 83880; 84100; 84484; 85025; 85027; 85610; 85730; 86803; 87389; 87899; 93005; 93010; 94640; 94761; 97116-GP; 97161-GP; 99285-25; G0378; Q9967